=== PATIENT | female | born 1970 | race Caucasian/White ===

== ENCOUNTER 2023-06-19 22:03 | Emergency (ER) | payer BC, SELFPAY ==
[2023-06-19 22:06] VITALS: BP 156/86
[2023-06-19 22:26] LABS: Hematocrit 40.5 % (37.0-47.0); Hemoglobin 14.7 g/dL (12.0-16.0); Mean Corp Hgb Conc. 36.3 g/dL (33.0-37.0); Mean Corpuscular Hgb 31.5 pg (27.0-31.0); Mean Corpuscular Volume 86.9 fL (81.0-99.0); Mean Platelet Volume 8.1 fL (7.4-10.4); Platelet Count 216 10^3/uL (130-400); Red Blood Cell Count 4.66 10^6/uL (4.20-5.40); Red Cell Dist. Width 11.7 % (11.5-14.5); White Blood Cell Count 8.4 10^3/uL (4.8-10.8)
[2023-06-19 22:49] LABS: Blood Urea Nitrogen 11 mg/dl (7-17); Calcium 9.7 mg/dl (8.4-10.2); Carbon Dioxide 25 mmol/L (22-30); Chloride 106 mmol/L (98-107); Glucose 115 mg/dl (70-99); Potassium 3.8 mmol/L (3.5-5.1); Sodium 138 mmol/L (135-145); eGFR > 60.00
[2023-06-20 02:05] VITALS: BP 108/57
[2023-06-20 02:59] VITALS: BMI 33.9
[2023-06-20 03:13] VITALS: BP 118/71
[2023-06-20] MEDS: DUONEB 3 ML INH (03:15)
--- NOTE | 2023-06-20 03:20 | EDRN ---
Pt had lunch around 1400 yesterday (fried foods) and developed chest tightness in the middle of her chest about 1-2 hours later. Pt also noted sob and thought it was asthma so she did a nebulizer in early evening. Pt says the neb usually relieves
her symptoms however it did not help this time. Pt adds she has had some stress recently but says she went to [place] and it helped her emotionally. Pt concerned because the chest tightness/sob were not going away. Pt reports that she feels better
since coming to the ED. Pt's chest no longer feels tight but she does feel a little sob. No recent air travel or long car rides. Pt thinks she tore her meniscus in December so she has intermittent leg pain. Pt has had a cough. Pt denies abd
pain, n/v, fever/chills, urinary symptoms, dizziness, weakness.
--- NOTE | 2023-06-20 03:31 | ED.GENMED ---
History of Present Illness
General
Chief Complaint: Breathing Problem
Source: patient
Exam Limitations: none
Time Seen by Provider: 06/20/23 02:24
Nursing documentation reviewed up to this point in time: agreed with
Travel History
Have you had any contact with someone who has COVID-19?: No
Do you have any symptoms of coronavirus? Fever > 100 degrees, chills, cough, shortness of breath, sore throat, loss of taste or smell, muscle aches, or headache?: No
History of Present Illness
History of Present Illness:
52 y/o F with h/o asthma, pneumonia, allergies, hiatal hernia
here with chest tightness and sob that mimicked previous asthma exacerbations around 3 pm today while pt was at home
dosesn't really recall what she was doing when it began but doesn't think it was any activitiy. she used her neb machine which didn't seem to help. she still had the feeling of sob and chest tightness so she came to the ER. while waiting here,
she seems to be improved though not all the way better
her sob feeling is not worse with exertion or breathing, no pleuritic pain
Last week she had a slight cough and nasal congestion and sinus congestion and was wondering if she could have gotten the pneumonia causing his chest tightness. She has had pneumonia in the past. She has not had a leg swelling or previous DVT or
PE, fever or chills, productive cough, abdominal pain or diarrhea. Patient has no cardiac disease, no cardiac risk factors though she thinks her cholesterol is slightly elevated, its never been treated.
Past History
Past History
ED Past Medical History: Asthma and Other (Covid pneumonia, adm in ICU on high flow in )
ED Past Surgical History:
Social History
Tobacco: Non-smoker
Review of Systems
Review of Systems
Allergies reviewed?: Yes
All Other Systems: Not applicable
Phy Exam
Physical Exam
Physical Exam:
GENERAL: Alert , in no apparent distress, well appearing
EYE: pupils equal and reactive
NECK: Supple
ENT: o/p clr, mmm.
CARDIAC: Regular rate and rhythm .no murmur appreicated, no edema
LUNGS: Clear breath sounds bilaterally, no acute respiratory distress, no wheezes/rales/rhonchi
no cough
ABDOMEN: Soft, without focal tenderness, no r/g, no cvat, normal bowel sounds
NEUROLOGICAL: Alert and oriented, no focal neuro deficits
SKIN: Warm and dry, skin intact.
MUSCULOSKELETAL: No edema, well perfused. neg jessica's sign
PSYCH: Normal and appropriate interaction.
Scores
Heart Failure Risk
Heart Failure Risk Score: Not Applicable
Course
Orders/Labs/Results
Orders:
Orders
06/19/23 22:10
Electrocardiogram (*1) Urgent
Reason for Study: Shortness of Breath
EKG- Treatment ONCE
06/19/23 22:21
BMP [Basic Metabolic Panel] Urgent
Complete Blood Count/No Diff Urgent
06/20/23 02:54
Ipratropium/Albuterol Sulfate [Duoneb] 3 ml INH R NOW STA
CR Chest - 2 Views Urgent
Comment:
Reason For Exam: shortness of breath
06/20/23 03:11
D-Dimer Urgent
Troponin I Urgent
Abnormal Lab Results
06/19/23
22:21
MCH 31.5 H pg
(27.0-31.0)
Glucose 115 H mg/dl
(70-99)
06/19/23 22:21
06/19/23 22:21
Vital Signs
Initial and Last Documented VS:
Initial Vital Signs
Temp Pulse Resp BP Pulse Ox
98.1 F 60 26 156/86 100
06/19/23 22:06 06/19/23 22:06 06/19/23 22:06 06/19/23 22:06 06/19/23 22:06
Last Documented Vital Signs
Temp Pulse Resp BP Pulse Ox
98.1 F 57 16 115/80 97
06/19/23 22:06 06/20/23 04:00 06/20/23 04:00 06/20/23 04:00 06/20/23 04:00
MDM/Problems Addressed
Differential Diagnosis Includes:
asthma, anxiety, pe, acs
MDM/Problems Addressed:
52 y/o F with h/o asthma
cold last week, thought she was btter
on 06/18 got some chest tightness and sob around 3-4 pm which reminded her of her asthma but didn't resond per usual to the neb treatment
she feels better now than she did but she still feels it subtly
she has no pleuritic pain
no exertional chest pain
and it feels like a tightness
has a known hiatal hernia but hasn't had postprandial pain
on exam well appearing
bp improved without treamtet
pulse ox normal
lungs clear
no chest wall tenenress
no edema
no murmur
ekg nonspecific lateral t wave flattening chronic unchanged
labs appreciated, normal wbc; will draw trop and d dimer, cxr
if neg, d/c home.
d dimer neg
pt will be discharged.
has pulm appt today
*Critical Care Note
Total Time (30-74mins, 75-104mins- exclusive of procedures): Not Applicable
ED Attending Note
-
Portions of this chart may have been created with voice recognition software.� Occasional wrong word or��sound alike� substitutions may have occurred due to the inherent limitations of voice recognition software.
Discharge Plan
Departure
Patient Disposition: Home (Routine Discharge)
Date of Disposition: 06/20/23
Time of Disposition: 04:36
Patient with high blood pressure during this ER visit?: No
Condition: Fair
Covid-19: Not Applicable
Discharge Problem:
Shortness of breath
Instructions: Asthma, Adult (DC), Shortness of Breath (Dyspnea) (DC)
Prescriptions:
No Action
ipratropium-albuterol 0.5 mg-3 mg(2.5 mg base)/3 mL Solution For Nebulization
3 ml INHALATION Q6HPRN PRN (Reason: sob)
albuterol sulfate [ProAir HFA] 90 mcg/actuation Hfa Aerosol Inhaler
1 puff INHALATION Q4HPRN PRN (Reason: sob)
multivitamin Tablet
1 tab PO DAILY
cyanocobalamin (vitamin B-12) 50 mcg Tablet
50 mcg PO DAILY
Elderberry
1 cap PO DAILY
Patient Comments:
pt does not know dosage
Fish Oil
1 cap PO DAILY
Patient Comments:
pt does not know dosage
turmeric
1 cap PO DAILY
Patient Comments:
pt does not know dosage
cholecalciferol (vitamin D3) [Vitamin D3] 50 mcg (2,000 unit) Tablet
50 mcg PO DAILY
Referrals:
Martinez Thompson MD [Family Provider] - Follow up in 2-3 days
Activity Restrictions/Additional Instructions:
YOUR SHORTNESS OF BREATH PROBABLY WAS RELATE TO YOUR ASTHMA
YOU HAD NO CHANGES TO YOUR EKG, A NEGATIVE TROPONIN ENZYME TO RULE OUT A HEART ATTACK AND A NEGTIVE TST TO RULE OUT A BLOOD CLOT
YOUR CHEST XRAY APPEARS CLEAR
TRY YOUR NEB EVERY 4 HOURS A SNEEDED FOR YOUR SYMPTOMS
try zyrtec or claritin once a day for allergy medciation
PERHAPS YOUR SYMPTOMS MAY BE DUE TO ACID REFLUX
TRY PEPCID 20 MG TWICE A DAY FOR 7-14DAYS AND SEE IF THIS MAKES A DIFFERENCE
YOU SHOULD SEE A GI DOCTOR WELL
RETURN FOR: PAINFUL BREATHING, PASSING OUT, SEVERE PAIN, FEVER, OR ANY CONCERNS
Interventions
Interventions:
*Risk Screen - Suicide Last Done: 06/19/23 22:06
*General Assessment Last Done: 06/20/23 02:06
*Neglect/Abuse Screening Last Done: 06/19/23 22:06
ED- Fall Risk Assessment Last Done: 06/20/23 02:05
*ED COVID-19 Vaccine History Last Done: 06/20/23 02:06
*Nursing Disposition Last Done: 06/20/23 04:47
ED- Cardiac Assessment Last Done: 06/20/23 03:19
ED- Pulmonary Assessment Last Done: 06/20/23 03:19
Discharge Date and Time
Discharge Date/Time: 06/20/23 04:47
[2023-06-20 03:50] LABS: Troponin I < 0.012 ng/ml
[2023-06-20 04:00] VITALS: BP 115/80
[2023-06-20 04:18] LABS: D-Dimer 0.39 ug/mlFEU (0.00-0.50)
== END 2023-06-20 04:47 | disposition home or self-care (01) ==
LOC: EMR 22:03
PROVIDERS: Emergency Medicine; Physician Assistant; EMERGENCY PHYSICIAN Student in an Organized Health Care Education/Training Program; FAMILY PHYSICIAN Family Medicine
DX: R06.02 Shortness of breath (principal); R07.89 Other chest pain; R09.81 Nasal congestion; J45.909 Unspecified asthma, uncomplicated; K44.9 Diaphragmatic hernia without obstruction or gangrene; Z87.01 Personal history of pneumonia (recurrent); Z86.16 Personal history of COVID-19; Z88.1 Allergy status to other antibiotic agents; Z88.0 Allergy status to penicillin
CPT/HCPCS: 99283; 94640; 71046; 80048; 84484; 85027; 85379; 93005

== ENCOUNTER 2023-11-07 13:13 | Emergency (ER) | payer BC, SELFPAY ==
[2023-11-07 13:14] VITALS: BP 117/91
[2023-11-07 13:30] LABS: % Basophils 0.7 % (0-2); % Eosinophils 3.2 % (0-6); % Immature Granulocytes 0.5 % (0-0.5); % Lymphocytes 22.6 % (20.5-51.1); % Monocytes 4.2 % (1.7-9.3); % Neutrophils 68.8 % (42.2-75.2); Absolute Basophils 0.1 10^3/uL (0-0.2); Absolute Eosinophils 0.3 10^3/uL (0-0.7); Absolute Monocytes 0.4 10^3/uL (0.1-0.6); Hematocrit 40.9 % (37.0-47.0); Hemoglobin 15.1 g/dL (12.0-16.0); Mean Corp Hgb Conc. 36.9 g/dL (33.0-37.0); Mean Corpuscular Hgb 31.9 pg (27.0-31.0); Mean Corpuscular Volume 86.3 fL (81.0-99.0); Mean Platelet Volume 8.2 fL (7.4-10.4); Nucleated Red Blood Cells % 0 %; Platelet Count 255 10^3/uL (130-400); Red Blood Cell Count 4.74 10^6/uL (4.20-5.40); Red Cell Dist. Width 11.8 % (11.5-14.5); White Blood Cell Count 8.7 10^3/uL (4.8-10.8)
[2023-11-07 13:38] LABS: Urine Albumin Trace (Neg - Trace); Urine Bilirubin Negative (Negative); Urine Character Clear (Clear); Urine Color Yellow; Urine Glucose Negative (Negative); Urine Ketone Negative (Negative); Urine Leukocyte 2+ (Negative); Urine Nitrite Negative (Negative); Urine Occult Blood Negative (Negative); Urine Urobilinogen Negative (Neg - 1+)
[2023-11-07 13:44] LABS: ALT (SGPT) 89 U/L (0-35); AST (SGOT) 50 U/L (14-36); Albumin 4.6 g/dl (3.5-5.0); Alkaline Phosphatase 124 U/L (38-126); Blood Urea Nitrogen 14 mg/dl (7-17); Calcium 9.8 mg/dl (8.4-10.2); Carbon Dioxide 23 mmol/L (22-30); Chloride 106 mmol/L (98-107); Glucose 104 mg/dl (70-99); Potassium 4.4 mmol/L (3.5-5.1); Sodium 139 mmol/L (135-145); Total Bilirubin 0.7 mg/dl (0.2-1.3); Total Protein 7.2 g/dl (6.3-8.2); eGFR > 60.00
[2023-11-07 13:52] LABS: Lipase 78 U/L (23-300)
[2023-11-07 13:53] VITALS: BMI 34.3
[2023-11-07 14:10] LABS: Urine Bacteria Few (Negative); Urine White Cell 26-30 /HPF (0-5)
--- NOTE | 2023-11-07 14:22 | ED.GENMED ---
History of Present Illness
General
Chief Complaint: Abdominal Pain
Time Seen by Provider: 11/07/23 14:01
History of Present Illness
History of Present Illness:
53-year-old female presents to the emergency department for evaluation of lower abdominal discomfort for the past 2 to 3 days. She is concerned about a palpable mass adjacent to her scar. Area is tender and warm as well. Saw her primary
care physician was referred here. She also notes skin lesions to the right thigh and left posterior leg that been present for several weeks. She was seen by brush painter for these and recommended to take an antibiotic however she declined.
Past History
Past History
ED Past Medical History: Asthma and Other (Covid pneumonia, adm in ICU on high flow in )
ED Past Surgical History:
Social History
Tobacco: Non-smoker
Review of Systems
Review of Systems
Allergies reviewed?: Yes
All Other Systems: ROS reviewed and negative except as documented in HPI and ROS
Phy Exam
Physical Exam
Physical Exam:
GEN: Well appearing, NAD, WDWN
HEENT: Oral mucosa moist, no scleral icterus
Cardiac: Regular rate
Lung: No respiratory distress, no tachypnea
Abdomen: There is erythema and warmth along the course of the scar, on the left lateral portion there is palpable firmness and induration with no open wound or fluctuance
MSK: No gross deformity or injuries
Skin: Good color, no pallor or jaundice, no rashes. Furuncle to the left posterior thigh
Neuro: AO x3, moves all extremities freely
Psych: Calm, cooperative
Course
Orders/Labs/Results
Orders:
Orders
11/07/23 13:22
Complete Blood Count/With Diff Urgent
Comprehensive Metabolic Panel Urgent
Lipase Urgent
Urinalysis Reflex To Culture Urgent
Date Specimen was Collected: 11/07/23
Time Specimen was Collected: 13:17
Urine Microscopic Reflex Cult Urgent
Urine Culture Urgent
PELON Source: U
Specimen Description:
Obtained by: Random
Date Specimen was Collected: 11/07/23
Time Specimen was Collected: 13:17
11/07/23 14:21
US Abdomen Limited Urgent
Comment:
Reason For Exam: palpable tender mass lower abdomen
Abnormal Lab Results
11/07/23
13:22
MCH 31.9 H pg
(27.0-31.0)
Glucose 104 H mg/dl
(70-99)
AST 50 H U/L
(14-36)
ALT 89 H U/L
(0-35)
Leukocyte Esterase Rfl 2+ A
(Negative)
Urine RBC 3-6 A /HPF
(0-2)
Urine WBC (Reflex) 26-30 A /HPF
(0-5)
Urine Bacteria (Reflex) Few A
(Negative)
11/07/23 13:22
11/07/23 13:22
Vital Signs
Initial and Last Documented VS:
Initial Vital Signs
Temp Pulse Resp BP Pulse Ox
98.2 F 96 16 117/91 98
11/07/23 13:14 11/07/23 13:14 11/07/23 13:14 11/07/23 13:14 11/07/23 13:14
Last Documented Vital Signs
Temp Pulse Resp BP Pulse Ox
98.2 F 89 16 127/89 97
11/07/23 13:14 11/07/23 14:23 11/07/23 14:23 11/07/23 14:23 11/07/23 14:23
MDM/Problems Addressed
MDM/Problems Addressed:
Ultrasound shows a benign sebaceous cyst. It is quite firm and indurated thus I do not feel there is benefit to aspiration or incision and drainage. Will start the patient on antibiotics and discussed supportive care, recommend outpatient Derm
follow-up
*Critical Care Note
Total Time (30-74mins, 75-104mins- exclusive of procedures): Not Applicable
ED Attending Note
-
Portions of this chart may have been created with voice recognition software.� Occasional wrong word or��sound alike� substitutions may have occurred due to the inherent limitations of voice recognition software.
Discharge Plan
Departure
Patient Disposition: Home (Routine Discharge)
Date of Disposition: 11/07/23
Time of Disposition: 15:53
Patient with high blood pressure during this ER visit?: No
Discharge Problem:
Abdominal wall cellulitis
Instructions: Cellulitis (Skin Infection), Adult ED
Prescriptions:
New
cephalexin 500 mg capsule
500 mg PO Q8H 7 Days Qty: 21 0RF
No Action
ipratropium-albuterol 0.5 mg-3 mg(2.5 mg base)/3 mL Solution For Nebulization
3 ml INHALATION Q6HPRN PRN (Reason: sob)
albuterol sulfate [ProAir HFA] 90 mcg/actuation Hfa Aerosol Inhaler
1 puff INHALATION Q4HPRN PRN (Reason: sob)
multivitamin Tablet
1 tab PO DAILY
cyanocobalamin (vitamin B-12) 50 mcg Tablet
50 mcg PO DAILY
Elderberry
1 cap PO DAILY
Patient Comments:
pt does not know dosage
Fish Oil
1 cap PO DAILY
Patient Comments:
pt does not know dosage
turmeric
1 cap PO DAILY
Patient Comments:
pt does not know dosage
cholecalciferol (vitamin D3) [Vitamin D3] 50 mcg (2,000 unit) Tablet
50 mcg PO DAILY
Referrals:
Martinez Thompson MD [Family Provider] -
Activity Restrictions/Additional Instructions:
Warm compresses to the area
Take antibiotics in full
Interventions
Interventions:
*Risk Screen - Suicide Last Done: 11/07/23 13:53
*General Assessment Last Done: 11/07/23 15:00
*Neglect/Abuse Screening Last Done: 11/07/23 13:53
ED- Fall Risk Assessment Last Done: 11/07/23 13:53
*ED COVID-19 Vaccine History Last Done: 11/07/23 13:53
*Nursing Disposition Last Done: 11/07/23 16:28
[facility] Assessment Last Done: 11/07/23 14:25
Discharge Date and Time
Discharge Date/Time: 11/07/23 16:29
Print Language: MALDIVIAN
[2023-11-07 14:23] VITALS: BP 127/89
== END 2023-11-07 16:29 | disposition home or self-care (01) ==
LOC: EMR 13:13
PROVIDERS: Emergency Medicine; EMERGENCY PHYSICIAN Student in an Organized Health Care Education/Training Program; FAMILY PHYSICIAN Family Medicine
DX: L03.311 Cellulitis of abdominal wall (principal); L72.3 Sebaceous cyst; J45.909 Unspecified asthma, uncomplicated; Z86.16 Personal history of COVID-19; Z87.01 Personal history of pneumonia (recurrent); Z88.1 Allergy status to other antibiotic agents; Z88.0 Allergy status to penicillin
CPT/HCPCS: 99284; 76705; 80053; 81003; 81015; 83690; 85025; 87086

== ENCOUNTER → 2023-11-10 16:29 | Outpatient (REF) | payer BC, SELFPAY | LOC: RAD 16:29 | PROVIDERS: ATTENDING PHYSICIAN Surgery; FAMILY PHYSICIAN Family Medicine | DX: L02.211 Cutaneous abscess of abdominal wall (principal) | CPT/HCPCS: 74177; Q9967 ==

== ENCOUNTER 2024-09-05 21:07 | Emergency (ER) | payer BC, SELFPAY ==
[2024-09-05 21:13] VITALS: BP 146/93
[2024-09-05 21:48] LABS: Urine Albumin 3+ (Neg - Trace); Urine Bilirubin Negative (Negative); Urine Character Slightly Cloudy (Clear); Urine Color Yellow; Urine Glucose Negative (Negative); Urine Ketone Negative (Negative); Urine Leukocyte 2+ (Negative); Urine Nitrite Negative (Negative); Urine Occult Blood 4+ (Negative); Urine Specific Gravity 1.025 (<1.030); Urine Urobilinogen Negative (Neg - 1+)
[2024-09-05 21:49] LABS: % Basophils 0.5 % (0-2); % Eosinophils 2.8 % (0-6); % Immature Granulocytes 0.3 % (0-0.5); % Monocytes 4.3 % (1.7-9.3); % Neutrophils 72.1 % (42.2-75.2); Absolute Basophils 0.1 10^3/uL (0-0.2); Absolute Eosinophils 0.3 10^3/uL (0-0.7); Absolute Monocytes 0.4 10^3/uL (0.1-0.6); Absolute Neutrophils 7.3 10^3/uL (1.4-6.5); Hematocrit 42.3 % (37.0-47.0); Hemoglobin 15.5 g/dL (12.0-16.0); Mean Corp Hgb Conc. 36.6 g/dL (33.0-37.0); Mean Corpuscular Hgb 32.1 pg (27.0-31.0); Mean Corpuscular Volume 87.6 fL (81.0-99.0); Mean Platelet Volume 8.5 fL (7.4-10.4); Nucleated Red Blood Cells % 0 %; Platelet Count 238 10^3/uL (130-400); Red Blood Cell Count 4.83 10^6/uL (4.20-5.40); Red Cell Dist. Width 12.1 % (11.5-14.5); White Blood Cell Count 10.1 10^3/uL (4.8-10.8)
[2024-09-05 21:54] LABS: Urine Red Blood Cell >100 /HPF (0-2); Urine Squamous Cell 0-2 /LPF (Few)
[2024-09-05 21:55] LABS: Urine Bacteria Moderate (Negative)
[2024-09-05 22:00] LABS: HCG, Serum Qualitative Screen Negative
[2024-09-05 22:09] LABS: ALT (SGPT) 46 U/L (0-35); AST (SGOT) 26 U/L (14-36); Albumin 4.8 g/dl (3.5-5.0); Alkaline Phosphatase 111 U/L (38-126); Blood Urea Nitrogen 19 mg/dl (7-17); Calcium 10.3 mg/dl (8.4-10.2); Carbon Dioxide 26 mmol/L (22-30); Chloride 110 mmol/L (98-107); Glucose 127 mg/dl (70-99); Lipase 108 U/L (23-300); Potassium 4.4 mmol/L (3.5-5.1); Sodium 143 mmol/L (135-145); Total Bilirubin 0.5 mg/dl (0.2-1.3); Total Protein 7.4 g/dl (6.3-8.2); eGFR > 60.00
--- NOTE | 2024-09-05 23:59 | ED.GENMED ---
History of Present Illness
General
Chief Complaint: Abdominal Pain
Source: patient, previous radiology exam (CT abdomen pelvis November 2023 showing soft tissue inflammation left lower quadrant/left pelvic region. Also note of small nonobstructing left renal calculi.) and previous hospital records (Previous ED visit
for similar complaint August 2020.)
Exam Limitations: none
Time Seen by Provider: 09/05/24 23:47
Nursing documentation reviewed up to this point in time: agreed with
History of Present Illness
History of Present Illness:
This is a 54-year-old woman with history of asthma, eczema as well as 1 previous episode of left-sided renal colic related to left ureteric stone in August 2020.
She presents with several day history of intermittent left flank pain radiating to her left lower quadrant, occasionally severe associated with nausea without vomiting. She has not had a fever nor chills. She has not been taking anything for
discomfort. She denies hematuria but does note that her urine occasionally is somewhat 'orange in color' she denies urgency nor frequency but did note very mild dysuria after arrival to the ED, prior to today she has had no dysuria.
Patient unsure if current symptoms feel similar to previous episode of renal colic that she experienced August 2020. She denies injury, left flank and left lower quadrant pain are not aggravated with movement.
She denies diarrhea nor constipation.
She has been following with a clean out driller helper for chronic eczema and more recently was noted to have a skin abscess left posterior thigh for which she is prescribed doxycycline beginning August 23.
Past History
Past History
ED Past Medical History: Asthma and Other (Covid pneumonia, adm in ICU on high flow in ; kidney stones, eczema, skin abscesses)
ED Past Surgical History:
Social History
Tobacco: Non-smoker
Personal:
Living: with family
Employment: Employed (Self-employed)
Family History
Family History: Other (Noncontributory)
Phy Exam
Physical Exam
Physical Exam:
GENERAL: 54-year-old woman appears her stated age, awake and alert, pleasant, appears in no acute distress. Daughter is accompanying.
EYE: anicteric
NECK: Supple, nontender, no meningismus, no significant adenopathy.
ENT: oral mucosa is moist. No rhinorrhea.
CARDIAC: Regular rate and rhythm. no murmur.
LUNGS: Clear breath sounds bilaterally, no acute respiratory distress, no wheezes/rales/rhonchi
ABDOMEN: Rotund, Soft, nondistended, without focal tenderness, no r/g, no cvat. normoactive BS. No palpable masses.
NEUROLOGICAL: Alert and oriented x3, no focal neuro deficits. Gait is [place] and steady.
SKIN: Warm and dry, normal color, skin intact. No rash.
MUSCULOSKELETAL: No C/C/E. peripheral pulses are full and equal b/l. No palpable tenderness.
PSYCH: Normal and appropriate interaction.
Course
Orders/Labs/Results
Orders:
Orders
09/05/24 21:18
Test Result ONCE
09/05/24 21:40
Complete Blood Count/With Diff Urgent
Comprehensive Metabolic Panel Urgent
HCG, Serum Qualitative Screen Urgent
Comment: Notify provider if positive test present
Lipase Urgent
09/05/24 21:41
Urinalysis Reflex To Culture Urgent
Date Specimen was Collected: 09/05/24
Time Specimen was Collected: 21:36
Urine Microscopic Reflex Cult Urgent
Urine Culture Urgent
PELON Source: U
Specimen Description:
Date Specimen was Collected: 09/05/24
Time Specimen was Collected: 21:36
09/06/24
CT Abd/pel Without Iv Or Oral Urgent
Reason For Exam: intermittent L flank to LLQ pain x few days
Abnormal Lab Results
09/05/24 09/05/24
21:40 21:41
MCH 32.1 H pg
(27.0-31.0)
Absolute Neuts (auto) 7.3 H 10^3/uL
(1.4-6.5)
Lymphocytes % 20.0 L %
(20.5-51.1)
Chloride 110 H mmol/L
(98-107)
BUN 19 H mg/dl
(7-17)
Glucose 127 H mg/dl
(70-99)
Calcium 10.3 H mg/dl
(8.4-10.2)
ALT 46 H U/L
(0-35)
Ur Occult Blood Reflex 4+ A
(Negative)
Leukocyte Esterase Rfl 2+ A
(Negative)
Urine RBC >100 A /HPF
(0-2)
Urine Bacteria (Reflex) Moderate A
(Negative)
Urine Albumin (Reflex) 3+ A
(Neg - Trace)
09/05/24 21:40
09/05/24 21:40
Vital Signs
Initial and Last Documented VS:
Initial Vital Signs
Temp Pulse Resp BP Pulse Ox
98.6 F 92 16 146/93 99
09/05/24 21:13 09/05/24 21:13 09/05/24 21:13 09/05/24 21:13 09/05/24 21:13
Last Documented Vital Signs
Temp Pulse Resp BP Pulse Ox
98.6 F 92 16 146/93 99
09/05/24 21:13 09/05/24 21:13 09/05/24 21:13 09/05/24 21:13 09/05/24 21:13
MDM/Problems Addressed
Differential Diagnosis Includes:
Concern for renal colic/left ureteric stone, concern for pyelonephritis, musculoskeletal pain. Abdomen is soft without appreciable tenderness thus diverticulitis, colitis, bowel obstruction are unlikely.
Labs thus far are unremarkable.
Urinalysis shows significant microscopic hematuria with greater than 100 RBCs. Moderate bacteria, 6-[address] abdomen pelvis.
Currently comfortable. Will assess for return of pain.
Chronic conditions affecting care: Asthma and Other (History of kidney stones)
*Radiology
Radiology exam reviewed: radiology read reviewed (CT shows mild left hydro and hydroureter due to 5 mm stone in the distal left ureter. Note of cholelithiasis, contracted gallbladder. Fatty liver. No diverticulitis nor colitis. Normal appendix.)
*Pulse Oximetry
Patient hypoxic: no
*Critical Care Note
Total Time (30-74mins, 75-104mins- exclusive of procedures): Not Applicable
Update Note
Update Note:
01:55
Patient is pain-free and comfortable.
CAT scan shows 5 mm stone distal left ureter with mild hydronephrosis.
Will discharge to home with prescription for short course of oral Toradol as well as a few Vicodin and Zofran.
Discussed importance of remaining well-hydrated on a daily basis.
Will refer to urology for follow-up.
Return precautions discussed.
ED Attending Note
-
Portions of this chart may have been created with voice recognition software.� Occasional wrong word or��sound alike� substitutions may have occurred due to the inherent limitations of voice recognition software.
Discharge Plan
Departure
Patient Disposition: Home (Routine Discharge)
Date of Disposition: 09/06/24
Time of Disposition: 01:52
Patient with high blood pressure during this ER visit?: Yes
Condition: Good
Discharge Problem:
Calculus of distal left ureter
Instructions: Kidney Stones (DC), BLOOD PRESSURE
Prescriptions:
New
ketorolac 10 mg tablet
10 mg PO Q6H 5 Days Qty: 20 0RF
ondansetron 4 mg tablet,disintegrating
4 mg PO QID PRN (Reason: nausea and vomiting) Qty: 20 0RF
hydrocodone-acetaminophen 5-300 mg tablet
1 tab PO Q8H PRN (Reason: moderate pain) Qty: 8 0RF
No Action
ipratropium-albuterol 0.5 mg-3 mg(2.5 mg base)/3 mL Solution For Nebulization
3 ml INHALATION Q6HPRN PRN (Reason: sob)
albuterol sulfate [ProAir HFA] 90 mcg/actuation Hfa Aerosol Inhaler
1 puff INHALATION Q4HPRN PRN (Reason: sob)
multivitamin Tablet
1 tab PO DAILY
cyanocobalamin (vitamin B-12) 50 mcg Tablet
50 mcg PO DAILY
Elderberry
1 cap PO DAILY
Patient Comments:
pt does not know dosage
Fish Oil
1 cap PO DAILY
Patient Comments:
pt does not know dosage
turmeric
1 cap PO DAILY
Patient Comments:
pt does not know dosage
cholecalciferol (vitamin D3) [Vitamin D3] 50 mcg (2,000 unit) Tablet
50 mcg PO DAILY
cephalexin 500 mg capsule
500 mg PO Q8H 7 Days Qty: 21 0RF
Referrals:
Senthil Tran Jr., MD [Active, Urology] - Call in 1-3 days for appt
UNKNOWN - PT DOES,NOT KNOW [Family Provider]
Interventions
Interventions:
*Risk Screen - Suicide Last Done: 09/05/24 21:13
*General Assessment Last Done: 09/05/24 23:50
*Neglect/Abuse Screening Last Done: 09/05/24 21:13
*ED- Fall Risk Assessment Last Done: 09/05/24 23:50
[facility] Assessment Last Done: 09/05/24 23:50
Discharge Date and Time
Print Language: TAJIK
== END 2024-09-06 02:16 | disposition home or self-care (01) ==
LOC: EMR 21:07
PROVIDERS: Emergency Medicine; EMERGENCY PHYSICIAN Emergency Medicine
DX: N13.2 Hydronephrosis with renal and ureteral calculous obstruction (principal); J45.909 Unspecified asthma, uncomplicated
CPT/HCPCS: 99284; 74176; 80053; 81003; 81015; 83690; 84703; 85025; 87086

== ENCOUNTER → 2024-10-09 10:02 | Outpatient (REF) | payer BC, SELFPAY | LOC: HWRAD 10:02 | PROVIDERS: ATTENDING PHYSICIAN Specialist; FAMILY PHYSICIAN Family Medicine | DX: N20.0 Calculus of kidney (principal) | CPT/HCPCS: 76770 ==

== ENCOUNTER 2024-11-29 18:57 | Emergency (ER) | payer BC, SELFPAY ==
[2024-11-29] VITALS (8 sets, daily range): BP systolic 103–125; BP diastolic 70–90; PULSE 62–74; BMI 35.0
[2024-11-29 19:26] LABS: Hematocrit 40.2 % (37.0-47.0); Hemoglobin 14.4 g/dL (12.0-16.0); Mean Corp Hgb Conc. 35.8 g/dL (33.0-37.0); Mean Corpuscular Volume 86.8 fL (81.0-99.0); Nucleated Red Blood Cells % 0 %; Platelet Count 200 10^3/uL (130-400); Red Cell Dist. Width 12.1 % (11.5-14.5)
[2024-11-29 19:41] LABS: ALT (SGPT) 47 U/L (0-35); AST (SGOT) 36 U/L (14-36); Albumin 4.5 g/dl (3.5-5.0); Alkaline Phosphatase 93 U/L (38-126); Blood Urea Nitrogen 15 mg/dl (7-17); Calcium 9.8 mg/dl (8.4-10.2); Carbon Dioxide 22 mmol/L (22-30); Chloride 108 mmol/L (98-107); Glucose 126 mg/dl (70-99); Potassium 4.1 mmol/L (3.5-5.1); Sodium 138 mmol/L (135-145); Total Protein 6.8 g/dl (6.3-8.2); eGFR > 60.00
[2024-11-29 19:45] LABS: Troponin I < 0.012 ng/ml
[2024-11-29] MEDS: DELTASONE 50 MG PO (22:02)
[2024-11-29] MEDS: DUONEB 3 ML INH (22:04)
--- NOTE | 2024-11-29 22:09 | ED.GENMED ---
History of Present Illness
General
Chief Complaint: Dizziness
Source: patient
Exam Limitations: none
Time Seen by Provider: 11/29/24 21:25
Nursing documentation reviewed up to this point in time: agreed with
History of Present Illness
History of Present Illness:
54-year-old female history of asthma on inhaler non-smoker 2 weeks of dizziness and shortness of breath started while at a music concert in the heat been persistent was coughing yesterday, said intermittent dizziness, not particularly worse with
head movement no headache no slurred speech no arm or leg weakness, no calf pain using her inhaler with not much relief
Past History
Past History
ED Past Medical History: Asthma and Other (Covid pneumonia, adm in ICU on high flow in ; kidney stones, eczema, skin abscesses)
ED Past Surgical History:
Social History
Tobacco: Non-smoker
Alcohol: None
Drug: None
Personal:
Living: with family
Employment: Employed (Self-employed)
Family History
Family History: Other (Noncontributory)
Review of Systems
Review of Systems
All Other Systems: Not applicable
Constitutional: Denies fever or fatigue
Respiratory: Reports cough and trouble breathing; Denies hemoptysis
Cardiac: Denies chest pain
ABD/GI: Reports no symptoms
: Reports no symptoms
Musculoskeletal: Reports no symptoms
Skin: Reports no symptoms
Neurological: Reports dizzy; Denies headache, weakness or numbness
Endocrine: Reports no symptoms
Phy Exam
Physical Exam
Physical Exam:
Physical Exam
General: no apparent distress, not acutely ill
Neck: No jaundice
Heart: Regular
Lungs: Diminished breath sounds with expiratory wheeze bilaterally
Abdomen: Nontender
Neuro: alert and oriented. no focal neurological deficits normal finger-nose bilaterally
Skin: no rash
Psychiatric: well kept. interactive and cooperative
Extremities: no edema. no calf tenderness.
Course
Orders/Labs/Results
Orders:
Orders
11/29/24 18:59
EKG [Electrocardiogram (*1)] Urgent
Reason for Study: Chest Pain
EKG- Treatment ONCE
11/29/24 19:15
Complete Blood Count/With Diff Urgent
Comprehensive Metabolic Panel Urgent
Troponin I Urgent
11/29/24 21:47
Orthostatic VS- Treatment ONCE
Ipratropium/Albuterol Sulfate [Duoneb] 3 ml INH R NOW STA
Prednisone [Deltasone] 50 mg PO NOW STA
11/29/24 21:48
CR Chest - 2 Views Urgent
Comment:
Reason For Exam: sob cough
Abnormal Lab Results
11/29/24
19:15
MCH 31.1 H pg
(27.0-31.0)
Chloride 108 H mmol/L
(98-107)
Glucose 126 H mg/dl
(70-99)
ALT 47 H U/L
(0-35)
11/29/24 19:15
11/29/24 19:15
Vital Signs
Initial and Last Documented VS:
Initial Vital Signs
Temp Pulse Resp BP Pulse Ox
97.8 F 89 16 121/88 98
11/29/24 19:03 11/29/24 19:03 11/29/24 19:03 11/29/24 19:03 11/29/24 19:03
Last Documented Vital Signs
Temp Pulse Resp BP Pulse Ox
97.8 F 58 18 124/76 97
11/29/24 19:03 11/29/24 22:30 11/29/24 21:21 11/29/24 22:30 11/29/24 22:30
MDM/Problems Addressed
Differential Diagnosis Includes:
Asthma pneumonia electrolyte abnormality dehydration orthostasis doubt PE or serious bacterial infection doubt ACS
MDM/Problems Addressed:
Cough shortness of breath dizziness
Chronic conditions affecting care: Asthma
Acute Exacerbation and/or Progression of Chronic Illness: Asthma
*Radiology
Radiology exam reviewed: preliminary read by ED provider
*Pulse Oximetry
SaO2: 96
Oxygen Mode of Delivery: Room air
Patient hypoxic: no
*EKG
Interpreted by ED Provider?: Yes
Interpretation: normal
Comparison EKG: no comparison EKG present
Heart Rate: 78
Rate: normal
Rhythm: sinus
Ischemia: no ischemia
*Director Quality Systems Interpretation
Rate: normal
Interpretation: normal
Heart Rate: 78
Rhythm: sinus
*Critical Care Note
Total Time (30-74mins, 75-104mins- exclusive of procedures): Not Applicable
Update Note
Update Note:
Update, has a nonfocal neurologic exam slight wheeze peak flow 240 x 2, will try neb, p.o. steroids chest x-ray orthostatics
1130 update chest x-ray noted report noted patient feeling better. Peak flow up to 375 moving more air,
Have a nebulizer at home, will give short burst of steroids, antibiotics for anti-inflammatory effect, like a number for new PCP
ED Attending Note
-
Portions of this chart may have been created with voice recognition software.� Occasional wrong word or��sound alike� substitutions may have occurred due to the inherent limitations of voice recognition software.
Discharge Plan
Departure
Patient Disposition: Home (Routine Discharge)
Date of Disposition: 11/29/24
Time of Disposition: 23:32
Patient with high blood pressure during this ER visit?: No
Condition: Good
Covid-19: Not Applicable
Discharge Problem:
Asthma
Instructions: Asthma in adults - ED (DC), Dizziness
Prescriptions:
New
doxycycline monohydrate 100 mg capsule
100 mg PO BID Qty: 10 0RF
albuterol sulfate 2.5 mg /3 mL (0.083 %) solution for nebulization
2.5 mg inhalation Q4H PRN (Reason: shortness of breath or wheezing) Qty: 75 2RF
prednisone 20 mg tablet
40 mg PO DAILY Qty: 8 0RF
No Action
ipratropium-albuterol 0.5 mg-3 mg(2.5 mg base)/3 mL Solution For Nebulization
3 ml INHALATION Q6HPRN PRN (Reason: sob)
albuterol sulfate [ProAir HFA] 90 mcg/actuation Hfa Aerosol Inhaler
1 puff INHALATION Q4HPRN PRN (Reason: sob)
multivitamin Tablet
1 tab PO DAILY
cyanocobalamin (vitamin B-12) 50 mcg Tablet
50 mcg PO DAILY
Elderberry
1 cap PO DAILY
Patient Comments:
pt does not know dosage
Fish Oil
1 cap PO DAILY
Patient Comments:
pt does not know dosage
turmeric
1 cap PO DAILY
Patient Comments:
pt does not know dosage
cholecalciferol (vitamin D3) [Vitamin D3] 50 mcg (2,000 unit) Tablet
50 mcg PO DAILY
cephalexin 500 mg capsule
500 mg PO Q8H 7 Days Qty: 21 0RF
ketorolac 10 mg tablet
10 mg PO Q6H 5 Days Qty: 20 0RF
ondansetron 4 mg tablet,disintegrating
4 mg PO QID PRN (Reason: nausea and vomiting) Qty: 20 0RF
hydrocodone-acetaminophen 5-300 mg tablet
1 tab PO Q8H PRN (Reason: moderate pain) Qty: 8 0RF
Referrals:
NONE,* [Family Provider, Internal Medicine]
[facility] [Provider Group] - Next open appointment
Interventions
Interventions:
*Risk Screen - Suicide Last Done: 11/29/24 19:03
*General Assessment Last Done: 11/29/24 19:03
*Neglect/Abuse Screening Last Done: 11/29/24 19:03
*ED- Fall Risk Assessment Last Done: 11/29/24 21:22
*ED COVID-19 Vaccine History Last Done: 11/29/24 21:22
ED- Neurological Assessment Last Done: 11/29/24 21:23
ED- Cardiac Assessment Last Done: 11/29/24 21:23
ED Swallowing Screen Last Done: 11/29/24 22:01
Discharge Date and Time
Print Language: ESTONIAN
[2024-12-04 14:06] LABS: Lyme Antibody Screen, EIA Negative (Negative)
== END 2024-11-30 00:05 | disposition home or self-care (01) ==
LOC: EMR 18:57
PROVIDERS: Emergency Medicine; EMERGENCY PHYSICIAN Emergency Medicine
DX: J45.909 Unspecified asthma, uncomplicated (principal); R42 Dizziness and giddiness; R05.9 Cough, unspecified
CPT/HCPCS: 99285; 94640; 71046; 80053; 84484; 85025; 86618; 93005

== ENCOUNTER 2024-12-01 21:27 | Emergency (ER) | payer BC, SELFPAY ==
[2024-12-01 21:33] VITALS: BP 149/86
[2024-12-01 21:58] LABS: Hematocrit 41.8 % (37.0-47.0); Hemoglobin 14.9 g/dL (12.0-16.0); Mean Corp Hgb Conc. 35.6 g/dL (33.0-37.0); Mean Corpuscular Volume 88.0 fL (81.0-99.0); Nucleated Red Blood Cells % 0 %; Platelet Count 240 10^3/uL (130-400); Red Cell Dist. Width 12.2 % (11.5-14.5)
[2024-12-01 22:35] LABS: Troponin I < 0.012 ng/ml
[2024-12-01 22:47] LABS: ALT (SGPT) 50 U/L (0-35); AST (SGOT) 35 U/L (14-36); Albumin 4.9 g/dl (3.5-5.0); Alkaline Phosphatase 116 U/L (38-126); Blood Urea Nitrogen 17 mg/dl (7-17); Calcium 10.6 mg/dl (8.4-10.2); Carbon Dioxide 25 mmol/L (22-30); Glucose 161 mg/dl (70-99); Total Protein 7.5 g/dl (6.3-8.2); eGFR > 60.00
[2024-12-01 23:01] LABS: Chloride 108 mmol/L (98-107); Potassium 4.2 mmol/L (3.5-5.1); Sodium 141 mmol/L (135-145)
[2024-12-01 23:19] VITALS: BP 120/67
--- NOTE | 2024-12-01 23:28 | ED.GENMED ---
History of Present Illness
General
Chief Complaint: Chest Pain
Time Seen by Provider: 12/01/24 23:19
History of Present Illness
History of Present Illness:
FOCUSED PAST MEDICAL HISTORY
- Asthma, has had pneumonia, the white count is 11.3, hemoglobin normal,
REVIEW OF OLD RECORDS
- The patient was seen here 2 days ago and was seen here with dizziness and shortness of breath. At that time she was given nebs and steroid and chest x-ray was unremarkable.
Note:
CHIEF COMPLAINT(S)
Shortness of breath and chest tightness.
HISTORY OF PRESENT ILLNESS
The patient is a 54-year-old female with a recent history of asthma exacerbation. She was seen previously by Dr. Morgan and received a chest X-ray which was normal, and a breathing treatment. Prednisone was prescribed, which she has been using. The
patient also has albuterol and ipratropium (Atrovent) at home, and she called to inquire about using it. She reported that stress, particularly related to her twins returning to school, exacerbates her symptoms. The patient describes feeling short
of breath and anxious but noted no significant wheezing.
PHYSICAL EXAM
-- General: Well appearing in no distress
- HEENT: Moist oral mucosa
- Cardiovascular: No murmurs, normal heart rate, regular rhythm, No chest wall tenderness
- Pulmonary: No respiratory distress, breath sounds are clear and equal, room air sats are 100%, breath sounds are slightly diminished equally, no wheeze
- Abdomen: Soft with no peritoneal signs, no tenderness
- Neurologic: Excellent strength all extremities, no coordination deficits
- Psychiatric: Appropriate mental status, normal insight and judgement, but appears somewhat anxious at times
- Extremities: Nontender, no edema, moves all extremities equally
- Skin: No rash, no lesions
PLAN
- Administer duo-neb (albuterol and ipratropium) in the emergency department.
- Reassure the patient by discussing normal vital signs and previously unremarkable cardiac blood work.
DIFFERENTIAL DIAGNOSIS
The Differential Diagnosis includes, in no particular order and is not limited to:
- Asthma exacerbation
- Anxiety-related dyspnea
- Chronic obstructive pulmonary disease (COPD)
- Heart failure
- Pneumonia
- Pulmonary embolism
- Hypersensitivity pneumonitis
- Vocal cord dysfunction
- Hyperventilation syndrome
- Allergic reaction
SUMMARY OF ENCOUNTER
The patient presented with shortness of breath and chest tightness. A duo-neb treatment was administered due to prior reports of symptom management with albuterol and ipratropium. Cardiac blood work and normal vital signs provided reassurance. The
patients stressors were acknowledged, particularly regarding familial changes relating to her children�s schooling, potentially contributing to anxiety and asthma exacerbation.
DISPOSITION
Discharge with follow-up care.
MEDICATION RECONCILIATION
Continued use of current medications including prednisone, albuterol, and ipratropium at home.
MEDICAL DECISION MAKING
- Complexity of Data Reviewed: Chronic conditions affecting care include asthma.
- Data:
Category 1:
- Tests and documents: Reviewed previous chest X-ray reports and cardiac blood work.
Category 3:
- Discussed the management of associated stressors contributing to asthma exacerbations.
-Risk: Consideration of Admission/Observation: Escalation of care including admission/observation was considered given the complexity and risk of the patients presenting complaint, exam findings, and/or their underlying comorbidities. However,
ultimately I feel the patient is safe for outpatient management with close follow up. Reasoning: Work-up reassuring, does not reveal any acute life/organ threatening processes, patients symptoms well controlled upon reevaluation, reexamination is
reassuring, vitals are stable, patient agreeable with discharge, reliable for follow-up.
DIAGNOSIS
Asthma exacerbation (ICD-10: J45.901).
EKG
- Sinus 70, left axis deviation, borderline LVH, nonspecific ST abnormality
LABS
- Chemistries unremarkable however the glucose is 161, troponin less than 0.012
UPDATE
SUMMARY OF ENCOUNTER
The patient, a 54-year-old female, presented to the emergency department with symptoms of shortness of breath and chest tightness, which are consistent with an asthma exacerbation. Previously, the patient was given prednisone and had medications
like albuterol and ipratropium available for home use. In the emergency department, a duo-neb treatment consisting of albuterol and ipratropium was administered, which significantly relieved her symptoms. The patient inquired about the correlation
between anxiety and asthma and expressed concerns about stress-related exacerbation of symptoms due to her personal life circumstances. She does not use routine anxiety medication but reported past occasional use of lorazepam with some relief.
DISPOSITION
Discharge.
ASSESSMENT
The patient is experiencing an asthma exacerbation. Contributing factors include anxiety, which may be worsening the respiratory symptoms.
EMERGENCY TREATMENTS ADMINISTERED
Duo-neb treatment (albuterol and ipratropium) was administered in the emergency department.
PLAN
The patient is to continue using her current asthma medications, including prednisone, albuterol, and ipratropium, as prescribed. An as-needed prescription for lorazepam was given to help manage anxiety-induced exacerbations. The patient was advised
to follow up with her lung specialist for further management of her asthma.
PATIENT EDUCATION AND COUNSELING
The patient was educated on the effects of anxiety on asthma symptoms and the safe use of lorazepam for anxiety management. Emphasis was placed on recognizing symptoms and managing stress to prevent asthma exacerbations.
FOLLOW-UP INSTRUCTIONS
The patient is advised to follow up with her lung specialist.
MEDICATION RECONCILIATION
- Continued use of prednisone, albuterol, and ipratropium.
- Prescribed lorazepam for anxiety, to be taken as needed.
MEDICAL DECISION MAKING
-Complexity of Data Reviewed: Chronic conditions affecting care include asthma. Differential diagnosis includes asthma exacerbation, anxiety-related dyspnea, chronic obstructive pulmonary disease (COPD), heart failure, pneumonia, pulmonary embolism,
hypersensitivity pneumonitis, vocal cord dysfunction, hyperventilation syndrome, and allergic reaction.
-Data:
Category 1
No additional lab tests or imaging were conducted in the emergency department during this visit.
Category 3
Discussion of management involved assessing the need for anxiety medication and was addressed with the patient.
-Risk:
Consideration of Admission/Observation: Escalation of care including admission/observation was considered given the complexity and risk of the patients presenting complaint, exam findings, and/or their underlying comorbidities. However, ultimately I
feel the patient is safe for outpatient management with close follow up. Reasoning: Work-up reassuring, does not reveal any acute life/organ threatening processes, patients symptoms well controlled upon reevaluation, reexamination is reassuring,
vitals are stable, patient agreeable with discharge, reliable for follow-up. Prescription medication for lorazepam was prescribed to manage anxiety symptoms.
DIAGNOSIS
- Asthma exacerbation (ICD-10: J45.901)
- Anxiety disorder, unspecified (ICD-10: F41.9) (helping contribute to symptom exacerbation)
Past History
Past History
ED Past Medical History: Asthma and Other (Covid pneumonia, adm in ICU on high flow in ; kidney stones, eczema, skin abscesses)
ED Past Surgical History:
Social History
Tobacco: Non-smoker
Alcohol: None
Drug: None
Personal:
Living: with family
Employment: Employed (Self-employed)
Family History
Family History: Other (Noncontributory)
Phy Exam
Physical Exam
Physical Exam:
See HPI
Scores
Heart Score for Chest Pain Patients
STEMI patient?: Not applicable
Course
Orders/Labs/Results
Orders:
Orders
12/01/24 21:28
ECG [Electrocardiogram (*1)] Urgent
Reason for Study: Chest Pain
EKG- Treatment ONCE
12/01/24 21:52
Complete Blood Count/With Diff Urgent
Comprehensive Metabolic Panel Urgent
Troponin I Urgent
12/01/24 23:36
Ipratropium/Albuterol Sulfate [Duoneb] 3 ml INH R NOW STA
Abnormal Lab Results
12/01/24
21:52
WBC 11.3 H 10^3/uL
(4.8-10.8)
MCH 31.4 H pg
(27.0-31.0)
Abs Immat Gran (auto) 0.1 H 10^3/uL
(0-0.05)
Absolute Neuts (auto) 8.9 H 10^3/uL
(1.4-6.5)
Neutrophils % 78.6 H %
(42.2-75.2)
Lymphocytes % 18.3 L %
(20.5-51.1)
Chloride 108 H mmol/L
(98-107)
Glucose 161 H mg/dl
(70-99)
Calcium 10.6 H mg/dl
(8.4-10.2)
ALT 50 H U/L
(0-35)
12/01/24 21:52
12/01/24 21:52
Vital Signs
Initial and Last Documented VS:
Initial Vital Signs
Temp Pulse Resp BP Pulse Ox
36.6 C 69 16 149/86 100
12/01/24 21:33 12/01/24 21:33 12/01/24 21:33 12/01/24 21:33 12/01/24 21:33
Last Documented Vital Signs
Temp Pulse Resp BP Pulse Ox
36.6 C 93 20 125/74 99
12/01/24 21:33 12/02/24 00:45 12/02/24 00:45 12/02/24 00:00 12/02/24 00:45
*Pulse Oximetry
SaO2: 100
Oxygen Mode of Delivery: Room air
Patient hypoxic: no
*Critical Care Note
Total Time (30-74mins, 75-104mins- exclusive of procedures): Not Applicable
ED Attending Note
-
Portions of this chart may have been created with voice recognition software.� Occasional wrong word or��sound alike� substitutions may have occurred due to the inherent limitations of voice recognition software.
Discharge Plan
Departure
Patient Disposition: Home (Routine Discharge)
Date of Disposition: 12/02/24
Time of Disposition: 00:47
Patient with high blood pressure during this ER visit?: Yes
Discharge Problem:
Asthma
Instructions: Asthma in adults (DC), Anxiety in adults - ED (DC), BLOOD PRESSURE
Prescriptions:
New
lorazepam 0.5 mg tablet
0.5 mg PO HS PRN (Reason: anxiety) Qty: 8 0RF
No Action
ipratropium-albuterol 0.5 mg-3 mg(2.5 mg base)/3 mL Solution For Nebulization
3 ml INHALATION Q6HPRN PRN (Reason: sob)
albuterol sulfate [ProAir HFA] 90 mcg/actuation Hfa Aerosol Inhaler
1 puff INHALATION Q4HPRN PRN (Reason: sob)
multivitamin Tablet
1 tab PO DAILY
cyanocobalamin (vitamin B-12) 50 mcg Tablet
50 mcg PO DAILY
Elderberry
1 cap PO DAILY
Patient Comments:
pt does not know dosage
Fish Oil
1 cap PO DAILY
Patient Comments:
pt does not know dosage
turmeric
1 cap PO DAILY
Patient Comments:
pt does not know dosage
cholecalciferol (vitamin D3) [Vitamin D3] 50 mcg (2,000 unit) Tablet
50 mcg PO DAILY
cephalexin 500 mg capsule
500 mg PO Q8H 7 Days Qty: 21 0RF
ketorolac 10 mg tablet
10 mg PO Q6H 5 Days Qty: 20 0RF
ondansetron 4 mg tablet,disintegrating
4 mg PO QID PRN (Reason: nausea and vomiting) Qty: 20 0RF
hydrocodone-acetaminophen 5-300 mg tablet
1 tab PO Q8H PRN (Reason: moderate pain) Qty: 8 0RF
doxycycline monohydrate 100 mg capsule
100 mg PO BID Qty: 10 0RF
albuterol sulfate 2.5 mg /3 mL (0.083 %) solution for nebulization
2.5 mg inhalation Q4H PRN (Reason: shortness of breath or wheezing) Qty: 75 2RF
prednisone 20 mg tablet
40 mg PO DAILY Qty: 8 0RF
Referrals:
Nafisa Pope DO [Family Provider, Pulmonary Medicine]
Interventions
Interventions:
*Risk Screen - Suicide Last Done: 12/01/24 21:33
*General Assessment Last Done: 12/01/24 21:33
*Neglect/Abuse Screening Last Done: 12/01/24 21:33
ED- Cardiac Assessment Last Done: 12/01/24 23:15
Discharge Date and Time
Print Language: ARABIC
[2024-12-01] MEDS: DUONEB 3 ML INH (23:47)
[2024-12-02] VITALS: BP 125/74
[2024-12-02 01:00] VITALS: BP 107/61
== END 2024-12-02 01:11 | disposition home or self-care (01) ==
LOC: EMR 21:27
PROVIDERS: Emergency Medicine; EMERGENCY PHYSICIAN Emergency Medicine; FAMILY PHYSICIAN Internal Medicine
DX: J45.909 Unspecified asthma, uncomplicated (principal); R03.0 Elevated blood-pressure reading, without diagnosis of hypertension; F41.9 Anxiety disorder, unspecified; Z63.8 Other specified problems related to primary support group; Z87.01 Personal history of pneumonia (recurrent); Z86.16 Personal history of COVID-19
CPT/HCPCS: 99284; 94640; 80053; 84484; 85025; 93005

== ENCOUNTER 2025-01-15 06:19 | Day surgery (SDC) | payer BC, SELFPAY | END 2025-01-15 14:24 | disposition home or self-care (01) | LOC: GI 06:19 | PROVIDERS: ATTENDING PHYSICIAN Internal Medicine Gastroenterology | DX: Z12.11 Encounter for screening for malignant neoplasm of colon (principal); K57.30 Diverticulosis of large intestine without perforation or abscess without bleeding; K64.8 Other hemorrhoids; R12 Heartburn; K22.2 Esophageal obstruction; K31.7 Polyp of stomach and duodenum; K22.89 Other specified disease of esophagus; K31.89 Other diseases of stomach and duodenum; D12.5 Benign neoplasm of sigmoid colon; D12.1 Benign neoplasm of appendix; D12.4 Benign neoplasm of descending colon; K29.50 Unspecified chronic gastritis without bleeding; K63.89 Other specified diseases of intestine; Z80.0 Family history of malignant neoplasm of digestive organs | CPT/HCPCS: 45385; 45380; 43239; 88305; 88342 ==